=== PATIENT | male | born 1935 | race Caucasian/White ===

== ENCOUNTER → 2017-04-20 | Outpatient (CLI) | payer OTHER, BC | LOC: FIMAGING 14:16 → EEVIPCON 14:30 | PROVIDERS: ATTEND Nurse Practitioner | DX: D17.9 Benign lipomatous neoplasm, unspecified (principal) ==

== ENCOUNTER → 2017-10-08 | Outpatient (CLI) | payer OTHER, BC | LOC: BMCIMAGING 13:51 | PROVIDERS: ATTEND Internal Medicine | DX: M81.0 Age-related osteoporosis without current pathological fracture (principal) ==

== ENCOUNTER → 2018-04-30 | Outpatient (CLI) | payer BC, OTHER | LOC: FIMAGING 11:43 | PROVIDERS: ATTEND Orthopaedic Surgery | DX: Z01.818 Encounter for other preprocedural examination (principal); M17.11 Unilateral primary osteoarthritis, right knee ==

== ENCOUNTER 2018-05-08 08:54 | Inpatient (IN) | payer OTHER, BC ==
--- NOTE | 2018-05-08 07:17 | PDHPUP ---
History & Physical Update H&P update statement: This history and physical update is based on an assessment of the patient which was completed after admission or registration (within 24 hours), but prior to the surgery/procedure. H&P update: H&P reviewed & patient examined, no change in patient's condition since H&P completed
[~2018-05-08 08:54] MED LIST: ROPIVACAINE 0.2% 80 MG, EPINEPHrine 0.2 MG, KETOROLAC TROMETHAMINE 30 MG in SYRINGE 0 ML IU ONE; TRANEXAMIC ACID 3,000 MG in NS (SYRINGE) 50 ML IRR ONE
[2018-05-08] MEDS ORDERED: DEXAMETHASONE 4 MG/ML VIAL IVP ONE (09:04)
[2018-05-08] MEDS ORDERED: FAMOTIDINE 20 MG TAB PO ONE (09:04)
[2018-05-08] MEDS ORDERED: ceFAZolin 2 GM/DEXTROSE 100 ML IV ONE (09:04)
[2018-05-08] MEDS ORDERED: ACETAMINOPHEN 325 MG TAB PO ONE (09:04)
[2018-05-08] MEDS ORDERED: LR 1,000 ML IV ONE (09:05)
[2018-05-08] MEDS ORDERED: LIDOCAINE 1% 2 ML INJ ID PRN (09:05)
[2018-05-08] MEDS ORDERED: traMADol 50 MG TAB PO PRN (09:42)
[2018-05-08] MEDS ORDERED: FLUTICASONE NASAL 120 SPRAYS/16 GM MDI EACHNARE PRN (09:42)
[2018-05-08] MEDS ORDERED: TRANEXAMIC ACID 3,000 MG/50 ML BAG IRR ONE (09:49)
[2018-05-08] MEDS ORDERED: MIDAZOLAM 2 MG/2 ML VIAL IVP ONE (10:54)
--- NOTE | 2018-05-08 10:55 | PDANEPAE ---
ANE History of Present Illness r knee oa ANE Past Medical History - Cardiovascular History Hx Hypertension: No Hx Arrhythmias: No Hx Chest Pain: No Hx Coronary Artery / Peripheral Vascular Disease: No Hx CHF / Valvular Disease: No Hx Palpitations: No - Pulmonary History Hx COPD: No Hx Asthma/Reactive Airway Disease: No Hx Recent Upper Respiratory Infection: No Hx Oxygen in Use at Home: No Hx Sleep Apnea: No Sleep Apnea Screening Result - Last Documented: Negative - Neurologic History Hx Cerebrovascular Accident: No Hx Seizures: No Hx Dementia: No - Endocrine History Hx Diabetes: No - Renal History Hx Renal Disorders: No - Liver History Hx Hepatic Disorders: No - Neurological & Psychiatric Hx Hx Neurological and Psychiatric Disorders: Yes 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 colonoscopies ANE Review of Systems Review of Systems: - Exercise capacity METS (RN): 5 METS ANE Patient History - Allergies Allergies/Adverse Reactions: No Known Allergies Allergy (Unverified 04/26/18 10:33) - Home Medications Home Medications: Amoxicillin Trihydrate [Amoxicillin] 2,000 mg PO AD 04/26/18 [Last Taken 3 Months Ago ~02/06/18] Aspirin [Aspirin 81mg (*)] 81 mg PO MWF@21 04/26/18 [Last Taken 05/01/18] Clocortolone Pivalate [Cloderm] 1 jolly TP DAILY 04/26/18 [Last Taken 05/01/18] Desonide 0.05% [Desonide 0.05% Cream (*)] 1 jolly TP DAILY 04/26/18 [Last Taken ] Fluticasone Nasal [Flonase Nasal [place] (RX)] 1 sprays NASAL DAILY PRN 04/26/18 [ Last Taken 05/06/18] Glucosamine/Chondroitin [Glucosamine/Chondroitin (*)] 1 each PO BID 04/26/18 [ Last Taken 05/01/18] Loperamide HCl [Imodium 2 mg (*)] 2 mg PO PRN PRN 04/26/18 [Last Taken 05/01/18] Melatonin [Melatonin 3 MG (*)] 3 mg PO HS PRN 04/26/18 [Last Taken 05/01/18] Meloxicam 15 mg PO DAILY PRN 04/26/18 [Last Taken 05/01/18] Multivitamins [Multivitamin (*)] 1 each PO DAILY 04/26/18 [Last Taken 05/01/18] Omeprazole 20 mg PO DAILY 04/26/18 [Last Taken 05/07/18 07:30] Primidone [Mysoline 50mg (RX)] 50 mg PO BID 04/26/18 [Last Taken 05/07/18 07:30] Simvastatin [Zocor] 20 mg PO HS 04/26/18 [Last Taken 05/05/18] traMADol [Ultram 50 mg (*)] 50 mg PO HS PRN 04/26/18 [Last Taken 05/05/18] Tadalafil [Cialis] 20 mg PO DAILY PRN 05/03/18 [Last Taken 2 Weeks Ago ~04/24/18 ] - NPO status NPO Since - Liquids (Date): 05/08/18 NPO Since - Liquids (Time): 07:00 NPO Since - Solids (Date): 05/07/18 NPO Since - Solids (Time): 19:00 - Smoking Hx Smoking Status: Never smoked - Family Anes Hx Family Hx Anesthesia Complications: none ANE Labs/Vital Signs - Vital Signs Blood Pressure: 163/94 Heart Rate: 68 Respiratory Rate: 16 O2 Sat (%): 96 Height: 175.26 cm Weight: 68.039 kg ANE Physical Exam - Airway Neck exam: FROM Mallampati Score: Class 3 Mouth exam: normal dental/mouth exam - Pulmonary Pulmonary: no respiratory distress - ASA Status ASA Status: II ANE Anesthesia Plan Anesthesia Plan: MAC, spinal Regional Anesthesia: adductor canal FNB
[2018-05-08] MEDS ORDERED: fentaNYL 100 MCG/2 ML INJ ONE (11:14)
[2018-05-08] MEDS ORDERED: PROPOFOL/EMULSION 500 MG/50 ML BOTTLE IV ONE (11:14)
[2018-05-08] MEDS ORDERED: diphenhydrAMINE 25 MG CAP PO PRN (11:32)
[2018-05-08] MEDS ORDERED: TEMAZEPAM 15 MG CAP PO PRN (11:32)
[2018-05-08] MEDS ORDERED: DIPHENOXYLATE/ATROPINE LOMOTIL 1 TAB PO PRN (11:32)
[2018-05-08] MEDS ORDERED: PROMETHAZINE HCL 25 MG/ML INJ IVP PRN ×2 (11:32→11:56)
[2018-05-08] MEDS ORDERED: METOCLOPRAMIDE 10 MG/2 ML VIAL IVP PRN (11:32)
[2018-05-08] MEDS ORDERED: oxyCODONE IR 5 MG TAB PO PRN ×2 (11:32→11:56)
[2018-05-08] MEDS ORDERED: POLYETHYLENE GLYCOL 3350 17 GM PKT PO PRN (11:32)
[2018-05-08] MEDS ORDERED: BISACODYL 10 MG SUPP PR PRN (11:32)
[2018-05-08] MEDS ORDERED: PROMETHAZINE HCL 25 MG SUPPR PR PRN (11:32)
[2018-05-08] MEDS ORDERED: ONDANSETRON DISINTEGRATING 4 MG TAB PO PRN (11:32)
[2018-05-08] MEDS ORDERED: ONDANSETRON 4 MG/2 ML VIAL IVP PRN ×2 (11:32→11:56)
[2018-05-08] MEDS ORDERED: CYCLOBENZAPRINE 10 MG TAB PO PRN (11:32)
[2018-05-08] MEDS ORDERED: LACTULOSE 20 GM/30 ML UDCUP PO PRN (11:32)
[2018-05-08] MEDS ORDERED: MAGNESIUM HYDROXIDE 30 ML UDCUP PO PRN (11:32)
[2018-05-08] MEDS ORDERED: DEXAMETHASONE 4 MG/ML VIAL ONE (11:41)
[2018-05-08] MEDS ORDERED: ROPIVACAINE HCL 150 MG/30 ML INJ ONE (11:41)
[2018-05-08] MEDS ORDERED: ONDANSETRON 4 MG/2 ML VIAL ONE (11:41)
[2018-05-08] MEDS ORDERED: fentaNYL 100 MCG/2 ML INJ IVP PRN (11:56)
[2018-05-08] MEDS ORDERED: NALOXONE HCL 0.4 MG/ML INJ IVP PRN (11:56)
[2018-05-08] MEDS ORDERED: HYDROmorphONE/DILAUDID 1 MG/ML INJ IVP PRN (11:56)
[2018-05-08] MEDS ORDERED: LR 1,000 ML IV SCH (12:00)
--- NOTE | 2018-05-08 12:48 | POSTOPPROG ---
Post Op Note Date of Operation: 05/08/18 Surgeon: Luis Harris Coding Educator: darin harris Anesthesiologist: dr. hein Anesthesia: Spinal, Other (Specify) (adductor canal block) Pre-op Diagnosis: right knee OA Post-op Diagnosis: same Indication: Right knee pain Procedure: R TKA robot assisted Findings: severe knee OA Inf/Abcess present in the surg proc area at time of surgery?: No EBL: 50-100
--- NOTE | 2018-05-08 12:53 | POSTANESTH ---
Post Anesthetic Evaluation Cardiovascular Status: Normal, Stable Respiratory Status: Normal, Stable Level of Consciousness/Mental Status: Can Participate in Eval Pain Control: Adequate, Prn Tx Ordered Nausea/Vomiting Control: Adequate, Prn Tx Ordered Complications Possibly Related to Anesthesia: None Noted
[2018-05-08] MEDS: ACETAMINOPHEN 325 MG TAB PO SCH ×2 (14:59→18:08)
[2018-05-08] MEDS: ceFAZolin 2 GM/DEXTROSE 100 ML IV SCH (18:09)
[2018-05-08] MEDS: ASPIRIN 81 MG CHEWABLE TAB PO SCH (20:49)
[2018-05-08] MEDS: FAMOTIDINE 20 MG TAB PO SCH (20:49)
[2018-05-08] MEDS: SENNOSIDES/DOCUSATE SODIUM TAB PO SCH (20:49)
[2018-05-08] MEDS: PRIMIDONE 50 MG TAB PO SCH (20:49)
[2018-05-08] MEDS ORDERED: ATORVASTATIN CALCIUM 10 MG TAB PO SCH (21:00)
[2018-05-09] MEDS: ACETAMINOPHEN 325 MG TAB PO SCH ×2 (01:12→06:04)
[2018-05-09] MEDS: ceFAZolin 2 GM/DEXTROSE 100 ML IV SCH (01:12)
[2018-05-09 07:44] VITALS: BP 147/92
[2018-05-09] MEDS: SENNOSIDES/DOCUSATE SODIUM TAB PO SCH (08:36)
[2018-05-09] MEDS: FAMOTIDINE 20 MG TAB PO SCH (08:37)
[2018-05-09] MEDS: ASPIRIN 81 MG CHEWABLE TAB PO SCH (08:37)
[2018-05-09] MEDS: PRIMIDONE 50 MG TAB PO SCH (08:37)
[2018-05-09] MEDS ORDERED: DESONIDE 0.05% 15 GM CREAM TP SCH (09:00)
[2018-05-09] MEDS ORDERED: [UNRECOGNIZED DRUG - OTHER] TP SCH (09:00)
[2018-05-09] MEDS ORDERED: PANTOPRAZOLE SODIUM 40 MG TAB PO SCH (09:00)
--- NOTE | 2018-05-09 09:23 | SOAPPROG ---
SOAP Progress Note Assessment/Plan: Assessment: Patient is doing well POD 1 s/p R TKA Pain management: pain is well controlled on oral pain meds. VTE ppx: recommend aspirin 81 mg BID for 4 weeks, cont MAR and SCDs D/c planning: patient asked about SNF placement prior to surgery as patient is concerned about patient's 's ability to provide postoperative care. Patient this morning states he feels as though he can go home. Will d/c pending PT and OT eval and recommendations. Case management has been ordered. Plan: 05/09/18 09:15 05/09/18 09:24 Subjective: patient is doing well, resting comfortably, denies SOB, chest pain and N/V. Objective: Vital Signs Temp Pulse Resp BP Pulse Ox 36.6 C 65 14 147/92 H 97 05/09/18 07:42 05/09/18 07:42 05/09/18 07:42 05/09/18 07:42 05/09/18 07:42 Laboratory Results 05/09/18 04:30 05/09/18 04:30 05/08/18 05/09/18 05/10/18 05:59 05:59 05:59 Intake Total 1200 Output Total 700 150 Balance 500 -150 RLE: incision dressing has small bloody discharge, appears to have stopped, NVI , +pf/df ICD10 Worksheet Patient Problems: Problems Problem Status Onset Primary localized osteoarthritis of right knee Acute
--- NOTE | 2018-05-09 09:54 | PDIAF ---
- Diagnosis Diagnosis: s/p R TKA Code Status: Full Code - Medication Management Discharge Medications: Medications to Continue on Transfer Clocortolone Pivalate [Cloderm] 1 jolly TP DAILY 04/26/18 [Last Taken 05/01/18] Desonide 0.05% [Desonide 0.05% Cream (*)] 1 jolly TP DAILY 04/26/18 [Last Taken ] Fluticasone Nasal [Flonase Nasal [place]] 1 sprays NASAL DAILY PRN 04/26/18 [Last Taken 05/06/18] Glucosamine/Chondroitin [Glucosamine/Chondroitin (*)] 1 each PO BID 04/26/18 [ Last Taken 05/01/18] Loperamide HCl [Imodium 2 mg (*)] 2 mg PO PRN PRN 04/26/18 [Last Taken 05/01/18] Melatonin [Melatonin 3 MG (*)] 3 mg PO HS PRN 04/26/18 [Last Taken 05/01/18] Multivitamins [Multivitamin (*)] 1 each PO DAILY 04/26/18 [Last Taken 05/01/18] Omeprazole 20 mg PO DAILY 04/26/18 [Last Taken 05/07/18 07:30] Primidone [Mysoline] 50 mg PO BID 04/26/18 [Last Taken 05/07/18 07:30] Simvastatin [Zocor] 20 mg PO HS 04/26/18 [Last Taken 05/05/18] traMADol [Ultram 50 mg (*)] 50 mg PO HS PRN 04/26/18 [Last Taken 05/05/18] Tadalafil [Cialis] 20 mg PO DAILY PRN 05/03/18 [Last Taken 2 Weeks Ago ~04/24/18 ] Acetaminophen [Tylenol 325mg (*)] 650 mg PO Q6HRS tab 05/09/18 [Last Taken Unknown] Aspirin [Aspirin 81mg (*)] 81 mg PO BID tab.chew 05/09/18 [Last Taken Unknown] Polyethylene Glycol 3350 [Miralax 17 gm (*)] 17 gm PO DAILY PRN pkt 05/09/18 [ Last Taken Unknown] Sennosides/Docusate Sodium [Senokot-S] 1 - 2 tab PO BID tab 05/09/18 [Last Taken Unknown] celeCOXIB [Celebrex (*)] 200 mg PO DAILY cap 05/09/18 [Last Taken Unknown] oxyCODONE IR [Oxycodone Ir (*)] 5 - 10 mg PO Q3HRS PRN tab 05/09/18 [Last Taken Unknown] Discharge Medications: Refer to the Discharge Home Medication list for PRN reason. - Orders Services needed: Home Care, Physical Therapy Home Care Face to Face: I certify that this patient was under my care and that I had the required fvpr-vw-ormf encounter meeting the encounter requirements on the discharge day. My findings support the fact that the patient is homebound as defined in Home Care Face to Face Continued: [facility] Chapter 7 Medicare Benefits Manual 30.1.1 , The condition of the patient is such that there exists a normal inability to leave home and consequently, leaving home would require a considerable and taxing effort. Diet Recommendation: no restrictions on diet Diet Texture: Regular Texture Diet Additional Instructions: Joint Protocol-Knee Replacement Follow up with Dr. Joiner office as scheduled After surgery instructions: You received an adductor canal nerve block yesterday. It alleviates pain for approximately 30 hours. Once the numbness to your anterior mcnair wears off, your pain will increase. Start taking narcotics even low dose narcotic pain meds as the numbness decreases Take Aspirin 81mg by mouth morning and evening for 4 weeks (helps to prevent blood clots) Wear thigh high MAR hose on both legs during the daytime for 2 weeks (helps to prevent blood clots and decrease swelling in the surgical leg). It is ok to remove MAR hose at night time to give your legs a break. It is common for swelling and bruising to occur in the entire surgical leg even extending to the foot, if concerned call Dr. Almaraz office [phone] Elevate the surgical leg with the ankle above the hip several times a day. ~ Ideally anytime you are resting throughout the day. Attempt to keep the knee straight while elevating by placing pillows under the ankle instead of the knee to elevate. This may be painful, so please do as much as tolerated. ~This will help you achieve full knee extension. Use a walker for 7-14 days Start outpatient physical therapy in 7-10 days Wear an daisy wrap on the knee for 3-4 days after surgery, then it is no longer needed Do exercises in the book 2-3 times a day Ice at least 3-5 times a day for 30 minutes each time, if not more often. ~~We also recommend using the ice machine before falling asleep to help with pain If you have further questions that are not addressed here, please look at the information packet handed to you at the preop appointment. ~Most will be answered on the FAQs, after surgery instructions and incision care pages. *IF YOU HAVE A LIFE THREATENING EMERGENCY, CALL 911. FOR NON-LIFE THREATENING ISSUES, PLEASE CALL DR. JOINER OFFICE FIRST. A PHYSICIAN IS URGENT CARE 21/05. Incision/Dressing Care: May shower tomorrow, Incision dressing is waterproof. Do not soak in water, but shower is ok. Keep the incision (ford) dressing clean and dry. If the incision dressing gets soiled or wet underneath, change dressing to the dressing given to you by the hospital. (ford dressing will turn black if drainage occurs) Remove incision dressing (ford one) two weeks after surgery. ~Leave steri strips alone. ~They will fall off on their own. Do not have anyone else remove the incision dressing prior to the stated recommendation (2 weeks after surgery). ~If there are incision concerns, contact Dr. Almaraz office. ~(Esther or Dr. Lucero may remove earlier if concerns arise) If incision site (ford dressing) has drainage call Dr. Almaraz office, . ~Esther and Dr. Lucero may ask you to come into the office for further evaluation - Follow Up Care Current Providers and Referrals: Alexandra Siddiqui MD [Primary Care Provider] - Esther Lucero PA [Physician Supervisor Drying And Softening] - 05/27/18 9:15 am
--- NOTE | 2018-05-09 09:55 | PDFACE2FAC ---
Face to Face Encounter 1. I certify that this patient is under my care and that I, or a nurse practitioner or physician's web production assistant working with me, had a uaai-uf-muza encounter that meets the physician umqc-ev-znat encounter requirements with this patient on 05/09/18. 2. I certify that based on my findings, the following services are medically necessary home health services: [X Nursing] [X Physical Therapy] [ Speech-Language Pathology] 3. The medical condition and clinical findings that support the need for specialized skills, knowledge and judgement of the above services are: [s/p R TKA must use FWW, pain and decreased ROM postop] 4. I certify this patient is homebound* because [the patient's condition restricts their ability to leave their home except with the assistance of another individual or the aid of a supportive device.] ____must use FWW postop, increase pain, limited walking due to pain, recommend icing and elevating I certify that this patient is confined to his/her home and needs intermittent alf care, physical and/or speech therapy. This patient is under my care and I have authorized home health services. * Homebound is defined by Medicare as follows: absences from home require considerable and tacking effort and or for medical reasons or hindu services or are infrequent or of short duration when for other reasons*.
--- NOTE | 2018-05-09 10:10 | ASMTDCNOTE ---
Case Management Discharge Discharge Order Complete? Answers: Yes Patient to Obtain Answers: Independently Medications Transportation Arranged Answers: Family/Friends Faxed Final Orders Answers: Yes Family Notified Answers: Yes Discharge Comments Notes: Patient discharged home with and support of neighbor and daughter. [facility] will provide homecare. Date Signed: 05/09/2018 10:09 AM Electronically Signed By:Alysa Guerra RN
--- NOTE | 2018-05-09 10:56 | GOP ---
[f rep st] OPERATIVE REPORT DATE OF OPERATION: 05/08/2018 SURGEON: Kris Lucero MD ANALYTICAL CHEMIST: Esther Lucero, SOULEYMANE. ANESTHESIA: Spinal. PREOPERATIVE DIAGNOSIS: Right knee osteoarthritis. POSTOPERATIVE DIAGNOSIS: Right knee osteoarthritis. PROCEDURE PERFORMED: Right total knee arthroplasty with computer navigation, robotic assist. FINDINGS: Severe lateral and patellofemoral osteoarthritis with a preop flexion contraction of 15 de grees. ESTIMATED BLOOD LOSS: 30 cc. INDICATIONS: The patient is an 82-year-old male with severe and progressive pain and deformity of th e right knee unresponsive to conservative care. The risks and benefits of surgical intervention were explained in detail. DESCRIPTION OF PROCEDURE: The patient was brought to the operative room and placed on the table in t he supine position. Spinal anesthesia was induced without difficulty. A pneumatic tourniquet was appl ied about the right proximal thigh, and the leg was prepped and draped in a sterile fashion. The leg hurd was applied. After exsanguination by elevation the tourniquet was inflated to 250 mmHg. Incision was made anterior medial from the tibial tuberosity to a point 2 cm proximal to the superior pole of the patella. Medial parapatellar arthrotomy was carried out from the superior pole of the pa tella and posteriorly in line with the fibers of the Type II VMO. The medial collateral ligament was elevated and the infrapatellar fat pad was resected. The patella was everted and the articular surface was excised. A 35 mm patellar button was placed. Attention was turned first to the distal aspect of the femur. After exposure of the femur, 2 half pi ns were placed for fixation of the femoral array. In a similar fashion, 2 pins were placed anteromed ial on the tibia for fixation of the tibial array. External land marking and registration of the hip center was performed without difficulty. Internal femoral and tibial registration was carried out w ithout difficulty and the femoral and tibial checkpoints were placed and verified for accuracy. Attention was turned to the femur. The foot print for the size 4 femoral component was cut with the saw using the [email or web address] robotic system and verified for accuracy against the CT based plan. In a similar f ashion, the saw was used to cut the footprint for the size 5 tibial component using the [email or web address] system an d verified for accuracy against the CT based plan. The tibial articular surface was excised without d ifficulty, followed by the intercondylar box cut. The knee was extended and the remnants of the medial and lateral meniscus were excised. The posterior capsule was injected with ropivacaine, epinephrine and Toradol. A size 5 x 9 mm tibial tray was pos itioned. Trial reduction was then carried out. There was excellent range of motion, alignment, and st ability using the 9 mm polyethylene. All trials were then removed. The joint was thoroughly irrigated and carefully dried. The PressFit co mponents were implanted. The permanent 9 mm polyethylene was placed without difficulty. The tourniquet was deflated and all bleeders were coagulated. The wound was thoroughly irrigated and closed using interrupted sutures of 2-0 Vicryl for the joint capsule. The subcu was closed with 3-0 V icryl and the skin with 4-0 Monocryl. Dermabond and Steri-Strips were applied followed by a compress ross dressing. The patient was then moved from the operating room to the recovery room in good conditi on, having tolerated the procedure well. /[id number]/MODL
--- NOTE | 2018-05-09 11:01 | GDS ---
[f rep st] DISCHARGE SUMMARY ADMISSION DIAGNOSIS: Right knee osteoarthritis. DISCHARGE DIAGNOSIS: Right knee osteoarthritis. PROCEDURE: Right total knee arthroplasty, robotic-assisted, computer navigation. VTE PROPHYLAXIS: Recommend aspirin 81 mg twice daily for 4 weeks. BRIEF DESCRIPTION OF HOSPITAL STAY: Patient was admitted for an elective joint arthroplasty. The pa claudette tolerated the procedure well and has passed physical therapy. The patient was given appropriat e antibiotic prophylaxis and venous thromboembolism prophylaxis. The patient's pain was well control led on oral pain medication, patient was holding down food, and had urinated. Decision was made to d ischarge the patient. The patient was given post-operative prescriptions pre-operatively. PLAN: To follow up as scheduled with Dr. Lucero's office on May 27 at 9:15. /[id number]/MODL
--- NOTE | 2018-05-09 13:41 | ASDISCHSUM ---
Discharge Information Plan Status:Home with Home Health Medically Cleared to Leave: Discharge Date:05/09/2018 10:39 AM CM D/C Disposition: ADT D/C Disposition:Home Health Service Projected Discharge Date:05/09/2018 11:00 AM Transportation at D/C: Discharge Delay Reason: Follow-Up Date:05/09/2018 11:00 AM Discharge Slot: Final Diagnosis: Placement Information Referral Type:*Home Health Care Services Referral ID:[id number] Provider Name:[facility] Address 1:[address] [place] [address] Address 2: City:[place] Selection Factors: State:[place] Patient Contact Information Contact Name:PATRICA Relationship: Address:[address] Work Phone: City:[place] Alternate Phone: State/Zip Code:[place] [address] Email: Financial Information Financial Class:Medicare Primary Plan Desc:MEDICARE INPATIENT Primary Plan Number:[id number] Secondary Plan Desc: OUT OF STATE [facility] Secondary Plan Number:[id number] Assessment Information Case Management Discharge Plan Note Case Management Discharge Discharge Order Complete? Answers: Yes Patient to Obtain Answers: Independently Medications Transportation Arranged Answers: Family/Friends Faxed Final Orders Answers: Yes Family Notified Answers: Yes Discharge Comments Notes: Patient discharged home with and support of neighbor and daughter. [facility] will provide homecare. Date Signed: 05/09/2018 10:09 AM Electronically Signed By:Alysa Guerra RN Intervention Information
--- NOTE | 2018-05-09 14:48 | GDS ---
[f rep st] DISCHARGE SUMMARY ADDENDUM TO DISCHARGE SUMMARY: HOSPITAL COURSE: The patient did much better postoperatively than anticipated, okay for discharge ho me at an earlier timeframe than initially thought. /[id number]/MODL
== END 2018-05-09 10:39 | disposition home health service (06) | DRG 470 ==
LOC: F3N 08:54 → OBSVTOIN 11:35 → F3N 13:38
PROVIDERS: ADMIT Orthopaedic Surgery; ATTEND Orthopaedic Surgery
DX: M17.11 Unilateral primary osteoarthritis, right knee (principal)
CPT/HCPCS: 97161-GP; 97165-GO; G8978-GP-CI; G8979-GP-CI; G8980-GP-CI; G8987-GO-CI; G8988-GO-CI; J0171; J0690; J1100; J1885; J2250; J2405; J2704; J2795; J3010